=== PATIENT | female | born 1975 | race Caucasian/White ===

== ENCOUNTER 2017-04-19 20:28 | Emergency (ER) | payer BC ==
[~2017-04-19] VITALS: Ht 175.3 cm; Wt 88.0 kg
[2017-04-19 21:14] VITALS: BP_SYST 132
--- NOTE | 2017-04-19 22:42 | NUR ---
Patient to ER bed 07 to gown for evaluation. Side rails up. Report given to INDIA ERICKSON.
--- NOTE | 2017-04-19 22:45 | NUR ---
Patient AAO x4, sitting in bed c/o migraine MCCLELLAN 03/04 x 1 day. Patient c/o photophobia with nausea, states she has had symtoms "all day." Able to speak in full sentences and verbalize needs. Mother at bedside. No acute distress noted. Will continue to monitor.
--- NOTE | 2017-04-19 23:20 | NUR ---
MICHAEL Butt at bedside examining patient.
[2017-04-19] MEDS ORDERED: NACL 0.9% 1,000 ML IV ONE (23:30)
[2017-04-19] MEDS ORDERED: PROCHLORPERAZINE EDISYLATE 10 MG/2 ML VIAL IVP ONE (23:30)
[2017-04-19] MEDS ORDERED: KETOROLAC TROMETHAMINE 30 MG VIAL IVP ONE (23:30)
[2017-04-20] MEDS ORDERED: LORazepam 2 MG/ML VIAL (FOR ER USE) IVP ONE (00:45)
--- NOTE | 2017-04-20 01:14 | NUR ---
Md Dr. Luis verbally changed order from IVP to PO.
[2017-04-20 01:22] VITALS: BP_SYST 130
--- NOTE | 2017-04-20 01:22 | NUR ---
Patient given written and verbal discharge instructions and verbalizes understanding. ER MD discussed with patient the results and treatment provided. Patient in stable condition. ID arm band removed. IV catheter removed intact and dressing applied, no active bleeding. Rx of compazine given. Patient educated on pain management and to follow up with PMD. Pain Scale 0/10. Opportunity for questions provided and answered.
[2017-04-20] MEDS ORDERED: LORazepam 1 MG TABLET ONE (01:23)
[2017-04-20] MEDS ORDERED: LORazepam 1 MG TABLET PO ONE (01:30)
== END 2017-04-20 01:22 | disposition home or self-care (01) ==
LOC: SED 20:28
DX: G43.909 Migraine, unspecified, not intractable, without status migrainosus (principal); R03.0 Elevated blood-pressure reading, without diagnosis of hypertension
CPT/HCPCS: 96361; 96374; 96375; 99284; J0780; J1885; J2060; J7030

== ENCOUNTER 2023-09-13 16:57 | Emergency (ER) | payer BC ==
[~2023-09-13] VITALS: Ht 175.3 cm; Wt 88.9 kg
[2023-09-13 17:25] VITALS: BP_SYST 123; PULSE 109; RESP 20; TEMP 98.1; O2SAT 97
[2023-09-13] MEDS ORDERED: METHYLPREDNISOLONE SOD SUCC 40 MG/ML VIAL IVP ONE (18:00)
[2023-09-13] MEDS ORDERED: IPRATROPIUM/ALBUTEROL SULFATE 3 ML AMPUL.NEB (DUONEB) INH ONE (18:00)
[2023-09-13 18:08] LABS: INFLUENZA TYPE A Negative (NEGATIVE); INFLUENZA TYPE B NEGATIVE (NEGATIVE)
[2023-09-13 18:09] LABS: COVID19 ANTIGEN SOFIA FIA NEGATIVE (NEGATIVE)
[2023-09-13 18:29] VITALS: O2SAT 98
[2023-09-13 19:15] LABS: BASOPHILS % (AUTO) 0.5 % (0.0-2.0); EOSINOPHILS # (AUTO) 0.1 K/uL (0.0-0.4); EOSINOPHILS % (AUTO) 2.2 % (0.0-4.0); HEMATOCRIT 41.9 % (36-48); HEMOGLOBIN 14.5 g/dL (12.0-16.0); LYMPHOCYTES % (AUTO) 30.2 % (20.5-51.5); MEAN CORPUSCULAR HEMOGLOBIN 30 pg (27-31); MEAN CORPUSCULAR HGB CONC 35 % (32-36); MEAN CORPUSCULAR VOLUME 86 fL (79.0-98.0); MONOCYTES # (AUTO) 0.7 K/uL (0.0-1.0); MONOCYTES % (AUTO) 10.5 % (1.7-9.3); NEUTROPHILS # (AUTO) 3.8 K/uL (1.8-7.7); NEUTROPHILS % (AUTO) 56.6 % (40.0-70.0); PLATELET COUNT (AUTO) 264 K/uL (130-430); RED BLOOD CELL COUNT(AUTO) 4.87 MIL/uL (4.2-6.2); RED CELL DISTRIBUTION WIDTH 13.8 % (9.0-15.0); WHITE BLOOD COUNT (AUTO) 6.8 K/uL (4.8-10.8)
[2023-09-13 19:24] LABS: CALCIUM 8.9 mg/dL (8.4-11.0); CREATININE 0.91 mg/dL (0.55-1.30); POTASSIUM 3.7 mmol/L (3.5-5.1)
[2023-09-13] MEDS ORDERED: BUDE6.9H INH (19:29)
== END 2023-09-13 21:02 | disposition home or self-care (01) ==
LOC: SED 16:57
DX: J45.901 Unspecified asthma with (acute) exacerbation (principal); R05.9 Cough, unspecified; Z88.1 Allergy status to other antibiotic agents; Z79.899 Other long term (current) drug therapy; Z20.822 Contact with and (suspected) exposure to COVID-19
CPT/HCPCS: 36415; 71046-TC; 80048; 83605; 85025; 87040; 94640; 99284